=== PATIENT | male | born 1935 | race Hispanic/Latino ===

== ENCOUNTER 2018-10-28 03:00 | Emergency (ER) | payer MEDICARE, BC ==
[2018-10-28 03:01] VITALS: BMI 25.8
[2018-10-28 03:15] VITALS: TEMP 97.3
--- NOTE | 2018-10-28 03:24 | ED PDOC ---
Arrival/HPI <Heike Gonzalez PA-C - Last Filed: 10/28/18 18:15> - General Historian: Patient - History of Present Illness Narrative History of Present Illness (Text): 10/28/18 03:21 83 year old male, whose past medical history includes GERD presents to the emergency department complaining o left shoulder and left hip pain s/p trip and fall over a stool and landed on his left side. Patient reports hitting his head, but denies any LOC. Patient was not able to get up with out assistance due to pain on left hip. Patient is not on any blood thinners. Patient denies any fever, chills, chest pain, shortness of breath, nausea, vomiting, diarrhea, urinary symptoms, back pain, neck pain, headache, dizziness, or any other complaints. PMD: Dr. Sidhu Time/Duration: Other (1-2 hours ago) Symptom Onset: Sudden Symptom Course: Unchanged Activities at Onset: Light Context: Tripped <Anselmo Castañeda - Last Filed: 10/28/18 19:40> - General Chief Complaint: Trauma Time Seen by Provider: 10/28/18 03:09 Past Medical History - Provider Review Nursing Documentation Reviewed: Yes - Infectious Disease Hx of Infectious Diseases: None - Cardiac Hx Pacemaker: No - Neurological Hx Paralysis: No - Hematological/Oncological Hx Blood Transfusions: No Hx Blood Transfusion Reaction: No - Musculoskeletal/Rheumatological Hx Musculoskeletal Disorders: No - Gastrointestinal Hx Gastrointestinal Disorders: Yes Hx Gastroesophageal Reflux: Yes - Psychiatric Hx Emotional Abuse: No Hx Physical Abuse: No Hx Substance Use: No - Anesthesia Hx Anesthesia Reactions: No Hx Malignant Hyperthermia: No - Suicidal Assessment Feels Threatened In Home Enviroment: No <Anselmo Castañeda - Last Filed: 10/28/18 19:40> Family/Social History - Physician Review Nursing Documentation Reviewed: Yes Family/Social History: No Known Family HX Smoking Status: Never Smoked Hx Alcohol Use: Yes (SOCIAL) Hx Substance Use: No <Anselmo Castañeda - Last Filed: 10/28/18 19:40> Allergies/Home Meds <Heike Gonzalez PA-C - Last Filed: 10/28/18 18:15> <Anselmo Castañeda - Last Filed: 10/28/18 19:40> Allergies/Adverse Reactions: Allergies No Known Allergies Allergy (Verified 10/28/18 03:12) Home Medications: Home Meds Medication Instructions Recorded Confirmed Esomeprazole Magnesium [Nexium] 40 mg PO DAILY 06/18/12 10/28/18 Cetirizine HCl [Zyrtec Allergy] 10 mg PO PRN PRN 12/17/12 10/28/18 Review of Systems - Physician Review All systems were reviewed & negative as marked: Yes - Review of Systems Constitutional: absent: Fevers, Other (chills) Eyes: absent: Vision Changes Respiratory: absent: SOB, Cough Cardiovascular: absent: Chest Pain, Calf Pain Gastrointestinal: absent: Abdominal Pain, Diarrhea, Nausea, Vomiting Genitourinary Male: absent: Dysuria, Frequency, Hematuria Musculoskeletal: Other (left shoulder pain and left hip pain). absent: Back Pain, Neck Pain Neurological: absent: Headache, Dizziness, Focal Weakness, Gait Changes <Anselmo Castañeda - Last Filed: 10/28/18 19:40> Physical Exam Vital Signs Temp Pulse Resp BP Pulse Ox 10/28/18 07:00 80 18 149/78 99 10/28/18 03:14 97.3 F L 10/28/18 03:08 89 16 156/67 H 98 <Heike Gonzalez PA-C - Last Filed: 10/28/18 18:15> Vital Signs Reviewed: Yes Vital Signs Temp Pulse Resp BP Pulse Ox 10/28/18 03:14 97.3 F L 10/28/18 03:08 89 16 156/67 H 98 Temperature: Afebrile Blood Pressure: Hypertensive Pulse: Regular Respiratory Rate: Normal Appearance: Positive for: Well-Appearing, Non-Toxic, Comfortable Pain Distress: None Mental Status: Positive for: Alert and Oriented X 3 - Systems Exam Head: Present: Atraumatic, Normocephalic. No: Tenderness, Contusion, Swelling Pupils: Present: PERRL Extroacular Muscles: Present: EOMI Conjunctiva: Present: Normal Ears: Present: Normal, NORMAL TM Mouth: Present: Moist Mucous Membranes Pharnyx: Present: Normal. No: ERYTHEMA, EXUDATE, TONSILS ENLARGED Nose (External): Present: Atraumatic Nose (Internal): Present: Normal Inspection. No: Septal Hematoma, Epistaxis Neck: Present: Normal Range of Motion. No: Meningeal Signs, MIDLINE TENDERNESS, Paraspinal Tenderness, JVD, Lymphadenopathy, Bruit Respiratory/Chest: Present: Clear to Auscultation, Good Air Exchange. No: Respiratory Distress, Accessory Muscle Use Cardiovascular: Present: Regular Rate and Rhythm, Normal S1, S2. No: Murmurs Abdomen: No: Tenderness, Distention, Peritoneal Signs Back: Present: Normal Inspection. No: CVA Tenderness, Midline Tenderness Upper Extremity: Present: NORMAL PULSES, Tenderness (point tenderness to the left shoulder), Neurovascularly Intact, Other (2cm laceration to the left elbow. No visible bone or tendon). No: Cyanosis, Edema, Erythema, Temperature Abnormalties Lower Extremity: Present: Normal Inspection, Normal ROM, Neurovascularly Intact, Other (left hip pain, negative thompsons ). No: Edema, Jimmy's Sign, Deformity Neurological: Present: GCS=15, CN II-XII Intact, Speech Normal, Motor Func Grossly Intact, Normal Sensory Function Skin: Present: Warm, Dry, Normal Color. No: Rashes Psychiatric: Present: Alert, Oriented x 3, Normal Insight, Normal Concentration <Anselmo Castañeda - Last Filed: 10/28/18 19:40> Medical Decision Making - Lab Interpretations Lab Results: APTT 32.1 Seconds (26.9-38.3) 10/28/18 04:00 Total Bilirubin 0.4 mg/dL (0.2-1.3) 10/28/18 04:00 AST 28 U/L (17-59) 10/28/18 04:00 ALT 27 U/L (7-56) 10/28/18 04:00 Alkaline Phosphatase 46 U/L (38-126) 10/28/18 04:00 Total Protein 6.3 g/dL (5.8-8.3) 10/28/18 04:00 Albumin 3.8 g/dL (3.0-4.8) 10/28/18 04:00 Globulin 2.5 gm/dL 10/28/18 04:00 Albumin/Globulin Ratio 1.5 (1.1-1.8) 10/28/18 04:00 - RAD Interpretation Radiology Orders: 10/28/18 03:27 HEAD W/O CONTRAST [CT] Stat ELBOW LEFT 3 VIEWS ROUTINE [RAD] Stat HIP MIN 2V W/ PELVIS LT [RAD] Stat SHOULDER LEFT [RAD] Stat - Medication Orders Current Medication Orders: Discontinued Medications Tetanus/Reduced Diphtheria/Acell Pertussis (Boostrix Vaccine Inj) 0.5 ml IM .ONCE ONE Stop: 10/28/18 03:42 Last Admin: 10/28/18 05:21 Dose: 0.5 ml Immunization Registry Document 10/28/18 05:21 AD (Rec: 10/28/18 05:21 AD [id number]) [facility]-Date provided 10/28/18 <Heike Gonzalez PA-C - Last Filed: 10/28/18 18:15> ED Course and Treatment: 10/28/18 03:24 Impression: 83 year old male presents complaining of left shoulder and left hip pain s/p trip and fall hitting his head and landing on his left side 1-2 hours ago. No blood thinners. Pt in NAD, notes mild L hip pain and L shoulder pain and L elbow pain. Lac to L elbow without foreign body / tendon visualization / bone visualization. Good n/v status in all extremities. No neck pain. No cspine tenderness to the midline. No etoh, No FND or AMS. C spine clear via nexus. Pt does not remember last TDAP. Abd non-ttp, chest non-ttp. Pt denies any other pain. Plan: -- Labs -- CT Head w/o contrast -- Boostrix Vaccine -- Elbow Left x-ray -- Hip x-ray -- Shoulder left x-ray -- Reassess and disposition Prior Visits: Notes and results from previous visits were reviewed. Progress Notes: PROCEDURE: LACERATION REPAIR Performed by the emergency provider Location: L elbow Length: 2 cm Description: clean wound edges, no foreign bodies, no visible bone or tendon Distal CMS: Normal. No deficits. Neurovascularly intact. Anesthesia: Lidocaine 1% Preparation: The wound was cleaned with NS and [place]. The area was prepped and draped in the usual sterile fashion. Exploration: The wound was explored and no foreign bodies were found. Procedure: The wound was closed with 4-0 nylon. There was good} approximation. In total, 7 were used. Post-Procedure: Good closure and hemostasis. The patient tolerated the procedure well and there were no complications. CSM remains intact. Post procedure dressing applied. 10/28/[address], labs largely unremarkable Xray, unremarkable per my read remains w/ good n/v status distally post lac repair and shoulder sling. Pt walking well, in NAD with strong steady gait. Pain much improved clear for d/c home with return indications and f/u, pt agreeable to plan. <Anselmo Castañeda - Last Filed: 10/28/18 19:40> - Scribe Statement The provider has reviewed the documentation as recorded by the Nikita Miller Provider Scribe Attestation: All medical record entries made by the Scribe were at my direction and personally dictated by me. I have reviewed the chart and agree that the record accurately reflects my personal performance of the history, physical exam, medical decision making, and the department course for this patient. I have also personally directed, reviewed, and agree with the discharge instructions and disposition. <Anselmo Castañeda - Last Filed: 10/28/18 19:40> Disposition/Present on Arrival - Notes Notes (Text): 10/28/18 18:15 XR L elbow : IMPRESSION: Questionable and elevation of the anterior fat pad for which occult fracture cannot be entirely excluded. Pt called, spoke to his and notified of results, advised to return to the ER for CT of the L elbow to r/o fracture. Pt and his verbalize understanding of information and instructions, and will return to the ER. <Heike Gonzalez PA-C - Last Filed: 10/28/18 18:15> - Present on Arrival Any Indicators Present on Arrival: No History of DVT/PE: No History of Uncontrolled Diabetes: No Urinary Catheter: No History of Decub. Ulcer: No History Surgical Site Infection Following: None - Disposition Have Diagnosis and Disposition been Completed?: Yes Disposition Time: 06:45 <Anselmo Castañeda - Last Filed: 10/28/18 19:40> - Disposition Diagnosis: Shoulder pain, Fall, Hip pain, Contusion, Laceration Disposition: HOME/ ROUTINE Condition: STABLE Discharge Instructions (ExitCare): Taking Care of Bruises, Preventing Falls in the Older Adult, Wound Care (DC), Laceration Repair With Stitches (DC), Hip Pain (DC), Shoulder Pain (DC) Additional Instructions: RETURN IN 7-10 DAYS FOR SUTURE REMOVAL. RETURN IF ANY SIGNS OF INFECTION. RETURN IF YOUR PAIN WORSENS OR YOU ARE UNABLE TO WALK. SEE YOU PRIMARY CARE DOCTOR AND DR ZAMORA OR A BONE DOCTOR SOON POSSIBLE TOMA NELSON, thank you for letting us take care of you today. Your provider was Anselmo Castañeda and you were treated for FALL. The emergency medical care you received today was directed at your acute symptoms. If you were prescribed any medication, please fill it and take as directed. It may take several days for your symptoms to resolve. Return to the Emergency Department if your symptoms worsen, do not improve, or if you have any other problems. Please contact your doctor or call one of the physicians/clinics you have been referred to that are listed on the Patient Visit Information form that is included in your discharge packet. Bring any paperwork you were given at discharge with you along with any medications you are taking to your follow up visit. Our treatment cannot replace ongoing medical care by a primary care provider outside of the emergency department. Thank you for allowing the [facility] team to be part of your care today. If you had an X-Ray or CT scan: A Radiologist will review the ED reading if any change in treatment is needed we will contact you. If you had a blood, urine, or wound culture: It will take several days for the results, if any change in treatment is needed we will contact you. If you had an STI test: It will take 48 hours for the results. Please call after 1 week if you have not heard back. Prescriptions: Cephalexin [Keflex] 500 mg PO BID 7 Days #14 capsule Referrals: Say Zamora DO [Staff Provider] - Follow up with primary Henry Sidhu MD [Family Provider] - Follow up with primary [facility] [Outside] - Follow up with primary [facility] [Outside] - Follow up with primary [facility] [place] [place] [Outside] - Follow up with primary Forms: [facility] (Icelandic)
[2018-10-28] MEDS ORDERED: TDAP Vaccine 0.5 mL Syr IM ONE (03:41)
[2018-10-28 04:12] LABS: HEMOGLOBIN 12.7 g/dL (14.0-18.0); MEAN CELL VOLUME 91.3 fl (80.0-105.0); MEAN CORPUSCULAR HGB CONC 32.9 g/dl (31.0-37.0); RBC 4.23 {null, 10^6/uL} (3.5-6.1); WHITE BLOOD COUNT 7.7 {null, 10^3/uL} (4.5-11.0)
[2018-10-28 04:13] LABS: BASO # 0.04 {null, K/mm3} (0.0-2.0); BASO % 0.5 % (0.0-3.0); EOS # 0.1 (0.0-0.7); EOS % 1.8 % (1.5-5.0); LYMPH # 1.8 (1.2-3.4); MEAN PLATELET VOLUME 10.8 fl (7.0-11.0); MONO # 0.8 (0.1-0.6); MONO % 10.8 % (1.0-6.0)
[2018-10-28 04:25] LABS: ALB/GLOB RATIO 1.5 (1.1-1.8); ALBUMIN 3.8 g/dL (3.0-4.8); ALT/SGPT 27 U/L (7-56); AST/SGOT 28 U/L (17-59); BLOOD UREA NITROGEN 15 mg/dL (7-21); GFR NON-AFRICAN AMERICAN > 60
[2018-10-28] MEDS ORDERED: Bacitracin 500 Units/gm Oint Foilpak UD ONE (06:53)
[2018-10-28 07:43] VITALS: BP 149/78; PULSE 80; RESP 18; O2SAT 99
--- NOTE | 2018-10-28 11:03 | CT ---
Date of service: 10/28/2018 PROCEDURE: CT HEAD WITHOUT CONTRAST. HISTORY: fall COMPARISON: None available. TECHNIQUE: Axial computed tomography images were obtained through the head/brain without intravenous contrast. Radiation dose: Total exam DLP = 917.93 mGy-cm. This CT exam was performed using one or more of the following dose reduction techniques: Automated exposure control, adjustment of the mA and/or kV according to patient size, and/or use of iterative reconstruction technique. FINDINGS: HEMORRHAGE: No intracranial hemorrhage. BRAIN: No mass effect or edema. Atrophy. Chronic microvascular ischemic changes. VENTRICLES: Unremarkable. No hydrocephalus. CALVARIUM: Unremarkable. PARANASAL SINUSES: Unremarkable as visualized. No significant inflammatory changes. MASTOID AIR CELLS: Unremarkable as visualized. No inflammatory changes. OTHER FINDINGS: None. IMPRESSION: No acute intracranial pathology. Mild age-related changes.
--- NOTE | 2018-10-28 11:06 | RAD ---
PROCEDURE: Left Hip X-ray Radiographs. HISTORY: fall COMPARISON: None. TECHNIQUE: 2 views obtained. FINDINGS: BONES: No acute fracture. JOINTS: Bilateral hip joint space narrowing. SOFT TISSUES: Normal. OTHER FINDINGS: None. IMPRESSION: No demonstrated fracture or dislocation. Bilateral hip degenerative changes.
--- NOTE | 2018-10-28 11:07 | RAD ---
Date of service: 10/28/2018 PROCEDURE: Radiographs of the Left Shoulder HISTORY: fall COMPARISON: No prior. TECHNIQUE: 3 views obtained. FINDINGS: BONES: No acute fracture. JOINTS: Acromioclavicular and glenohumeral joint degenerative changes. SOFT TISSUES: Normal. OTHER FINDINGS: Calcified granuloma in the left midlung. IMPRESSION: No demonstrated fracture or dislocation.
--- NOTE | 2018-10-28 11:09 | RAD ---
Date of service: 10/28/2018 PROCEDURE: Radiographs of the left elbow. HISTORY: fall COMPARISON: No prior. TECHNIQUE: 3 views obtained. FINDINGS: BONES: No obvious displaced fracture. JOINTS: Normal. No osteoarthritis. SOFT TISSUES: Normal. JOINT EFFUSION: Questionable elevation of the anterior fat pad. OTHER FINDINGS: None IMPRESSION: Questionable and elevation of the anterior fat pad for which occult fracture cannot be entirely excluded.
== END 2018-10-28 07:00 | disposition home or self-care (01) ==
LOC: ED 03:00
DX: S51.012A Laceration without foreign body of left elbow, initial encounter (principal); S50.02XA Contusion of left elbow, initial encounter; W01.0XXA Fall on same level from slipping, tripping and stumbling without subsequent striking against object, initial encounter; M25.512 Pain in left shoulder; M25.552 Pain in left hip; Z23 Encounter for immunization

== ENCOUNTER 2018-10-28 19:14 | Emergency (ER) | payer BC, MEDICARE ==
--- NOTE | 2018-10-28 19:34 | ED PDOC ---
Arrival/HPI - General Time Seen by Provider: 10/28/18 19:17 Historian: Patient - History of Present Illness Narrative History of Present Illness (Text): 10/28/18 19:30 A 83 year old male presents to the emergency department evaluation of left elbow to rule out fracture. Patient reports he was seen earlier this morning for a fall, and the morning radiologist read the elbow X-ray, stating he was concerned of an occult fracture. Patient states that he was called back to return to the ER for CT for further evaluation. Patient states elbow is feeling better and does not have significant pain/numbness, or any other complaints at this time. PMD: Dr. Sidhu Past Medical History - Provider Review Nursing Documentation Reviewed: Yes - Infectious Disease Hx of Infectious Diseases: None - Cardiac Hx Pacemaker: No - Neurological Hx Paralysis: No - Hematological/Oncological Hx Blood Transfusions: No Hx Blood Transfusion Reaction: No - Musculoskeletal/Rheumatological Hx Musculoskeletal Disorders: No - Gastrointestinal Hx Gastrointestinal Disorders: Yes Hx Gastroesophageal Reflux: Yes - Psychiatric Hx Emotional Abuse: No Hx Physical Abuse: No Hx Substance Use: No - Anesthesia Hx Anesthesia Reactions: No Hx Malignant Hyperthermia: No - Suicidal Assessment Feels Threatened In Home Enviroment: No Family/Social History - Physician Review Nursing Documentation Reviewed: Yes Family/Social History: No Known Family HX Smoking Status: Never Smoked Hx Alcohol Use: Yes (SOCIAL) Hx Substance Use: No Allergies/Home Meds Allergies/Adverse Reactions: Allergies No Known Allergies Allergy (Verified 10/28/18 03:12) Home Medications: Home Meds Medication Instructions Recorded Confirmed Esomeprazole Magnesium [Nexium] 40 mg PO DAILY 06/18/12 10/28/18 Cetirizine HCl [Zyrtec Allergy] 10 mg PO PRN PRN 12/17/12 10/28/18 Review of Systems - Physician Review All systems were reviewed & negative as marked: Yes - Review of Systems Constitutional: absent: Other (no other notable injuries) Musculoskeletal: Other (left elbow evaluation for possible fracture, no pain/numbness to left elbow) Physical Exam Vital Signs Reviewed: Yes Temperature: Afebrile Blood Pressure: Normal Pulse: Regular Respiratory Rate: Normal Appearance: Positive for: Well-Appearing, Non-Toxic, Comfortable Pain Distress: None Mental Status: Positive for: Alert and Oriented X 3 - Systems Exam Upper Extremity: Present: Normal ROM (left elbow and the rest of the UE), NORMAL PULSES, Swelling (+mild swelling with mild erythema to the L elbow), Neurovascularly Intact, Capillary Refill < 2s, Norm 2-Pt Discrimination, Other (suture wound to the olecranon process of the left elbow). No: Cyanosis, Edema, Tenderness, Temperature Abnormalties, Deformity Neurological: Present: GCS=15, CN II-XII Intact, Speech Normal, Motor Func Grossly Intact, Normal Sensory Function Skin: Present: Warm, Dry, Normal Color. No: Rashes Psychiatric: Present: Alert, Oriented x 3, Normal Insight, Normal Concentration Medical Decision Making ED Course and Treatment: 10/28/18 19:35 Impression: 83 year old male here for left elbow evaluation. Plan: -- Left Elbow CT -- Reassess and disposition Progress Notes: 10/28/2018 20:[address] IMPRESSION: Limited exam. No definite acute osseous abnormality evident in the left elbow. Dictator: Anabelle Rivas MD CT results d/w the patient and his . Wound cleaned and dressed. Advised to follow up with pmd. - RAD Interpretation Radiology Orders: 10/28/18 19:23 EXT UPPER W/O CONTRAST LEFT [CT] Stat - PA / [employer] / Resident Statement MD/DO has reviewed & agrees with the documentation as recorded. - Scribe Statement The provider has reviewed the documentation as recorded by the Nikita Ordaz Provider Scribe Attestation: All medical record entries made by the Scribe were at my direction and personally dictated by me. I have reviewed the chart and agree that the record accurately reflects my personal performance of the history, physical exam, medical decision making, and the department course for this patient. I have also personally directed, reviewed, and agree with the discharge instructions and disposition. Disposition/Present on Arrival - Present on Arrival Any Indicators Present on Arrival: No History of DVT/PE: No History of Uncontrolled Diabetes: No Urinary Catheter: No History Surgical Site Infection Following: None - Disposition Have Diagnosis and Disposition been Completed?: Yes Diagnosis: Left elbow contusion Disposition: HOME/ ROUTINE Disposition Time: 20:45 Patient Plan: Discharge Condition: STABLE Discharge Instructions (ExitCare): Contusion (DC) Additional Instructions: Thank you for letting us take care of you today. You were treated for L elbow contusion. The emergency medical care you received today was directed at your acute symptoms. Clean wound daily with regular soap and water. Return to the Emergency Department if your symptoms worsen, do not improve, or if you have any other problems. Please contact your doctor in 2 days for re-evaluation and follow up. Bring any paperwork you were given at discharge with you along with any medications you are taking to your follow up visit. Our treatment cannot replace ongoing medical care by a primary care provider (PCP) outside of the emergency department. Thank you for allowing the [facility] team to be part of your care today. Your CT scan of the L elbow shows no fracture. Forms: [facility] (Hungarian)
[2018-10-28 19:39] VITALS: RESP 18; O2SAT 100; BMI 26.6
[2018-10-28] MEDS ORDERED: Bacitracin 500 Units/gm Oint Foilpak UD ONE (21:00)
[2018-10-28 21:14] VITALS: BP 148/80; PULSE 70; TEMP 98.5
--- NOTE | 2018-10-29 10:10 | CT ---
Date of service: 10/28/2018 PROCEDURE: CT left elbow HISTORY: pain, s/p fall, ?occult fracture to elbow COMPARISON: Not available TECHNIQUE: 2.5 mm contiguous axial sections were acquired through the left elbow. Total exam DLP: 407.82 mGy-cm This CT exam was performed using 1 or more of the following dose reduction techniques: Automated exposure control, adjustment of the mA and/or kV according to patient size, and/or use of iterative reconstruction technique. FINDINGS: There is no evidence of fracture. There is no lytic or blastic osseous lesion. There is no dislocation. There are no articular erosions. There is no joint effusion. There is no soft tissue abnormality. IMPRESSION: No acute fracture. The preliminary findings for this examination were reported by [facility] at 8:39 p.m. on 10/28/2018. There is concurrence of this report with the preliminary findings.
== END 2018-10-28 21:00 | disposition home or self-care (01) ==
LOC: ED 19:14
DX: S50.02XD Contusion of left elbow, subsequent encounter (principal); W01.0XXD Fall on same level from slipping, tripping and stumbling without subsequent striking against object, subsequent encounter